=== PATIENT | female | born 1960 | race Two or more races ===

== ENCOUNTER → 2020-03-15 | Outpatient (CLI) | payer OTHER ==
--- NOTE | 2020-03-15 11:43 | KCIC ---
CERVICAL SPINE WO CONTRAST DATE: 03/15/2020 10:15 AM INDICATION: Neck pain with left upper extremity radiculopathy TECHNIQUE: Multiplanar multisequence magnetic resonance imaging of the cervical spine was performed without administration of intravenous contrast using the standard cervical spine protocol. COMPARISON: None. FINDINGS: The cervical spine is normally aligned. No acute fracture. Mild multilevel degenerative disc desiccation and disc height loss. No marrow replacing process to suggest malignancy. The spinal cord is normal in signal intensity. On the limited views of the cranial cavity and brain, the cerebellum and omar have normal morphology and signal characteristics. No Chiari malformation. No soft tissue abnormality. Normal signal voids are present in the vertebral arteries. C2-3: No significant spinal canal stenosis or neural foraminal narrowing. C3-4: Uncovertebral hypertrophy. Mild left neural foraminal narrowing. No spinal canal stenosis. C4-5: Disc osteophyte complex. Uncovertebral hypertrophy. Moderate to severe bilateral neural foraminal narrowing. Mild to moderate spinal canal stenosis. C5-6: Disc osteophyte complex. Uncovertebral hypertrophy. Moderate bilateral neural foraminal narrowing. No spinal canal stenosis. C6-7: Uncovertebral hypertrophy. Mild left neural foraminal narrowing. No spinal canal stenosis C7-T1: Uncovertebral hypertrophy. Mild left neural foraminal narrowing. No spinal canal stenosis. IMPRESSION: Cervical spondylosis, worst at C4-5 and detailed level by level above. Electronically signed by: Yury Mascorro MD (03/15/2020 11:40 AM) [id number]
== END | disposition home or self-care (01) ==
LOC: KCIC MRI 09:57
PROVIDERS: ATTEND Physician Assistant Medical
DX: M47.22 Other spondylosis with radiculopathy, cervical region (principal); M48.02 Spinal stenosis, cervical region; M89.38 Hypertrophy of bone, other site; M25.78 Osteophyte, vertebrae
CPT/HCPCS: 72141